=== PATIENT | female | born 1985 | race African-American/Black ===

== ENCOUNTER 2022-11-12 18:38 | Emergency (ER) | payer MEDICAID ==
[~2022-11-12] VITALS: Ht 160 cm; Wt 67.3 kg
[2022-11-12 18:45] VITALS: TEMP 98.1
[2022-11-12] MEDS ORDERED: AMOXICILLIN 8751 TAB PO (20:03)
[2022-11-12 20:22] VITALS: BP 140/86; PULSE 77
== END 2022-11-12 20:22 | disposition home or self-care (01) ==
LOC: COL.ER 18:38
DX: K02.9 Dental caries, unspecified (principal); F17.210 Nicotine dependence, cigarettes, uncomplicated; Z28.310 Unvaccinated for COVID-19; Z87.19 Personal history of other diseases of the digestive system

== ENCOUNTER 2023-08-11 07:34 | Emergency (ER) | payer MEDICAID ==
[~2023-08-11] VITALS: Ht 160 cm; Wt 67.3 kg
[~2023-08-11 07:34] MED LIST: AMOXICILLIN 8751 TAB PO
[2023-08-11 07:41] VITALS: TEMP 97.8
[2023-08-11 08:02] LABS: BASO % 0.2 % (0.0-2.0); EOS % 0.1 % (0.0-4.0); GRAN # 7.7 K/mm3 (1.4-6.5); GRAN % 75.4 % (42.2-75.2); HEMATOCRIT 37.2 % (37.0-47.0); HEMOGLOBIN 12.5 g/dl (12.5-16.0); LYMPH # 1.8 K/mm3 (1.2-3.4); LYMPH % 17.3 % (20.0-51.0); MEAN CELL VOLUME 90 fl (80.0-100.0); MEAN CORPUSCULAR HEMOGLOBIN 30 pg (27-31); MEAN CORPUSCULAR HGB CONC 34 g/dl (33.0-37.0); MONO # 0.7 K/mm3 (0.1-0.6); MONO % 6.6 % (1.7-9.3); PLATELET COUNT 293 K/mm3 (130-400); RED BLOOD COUNT 4.13 M/mm3 (4.10-5.30); REDCELL DISTRIBUTION WIDTH-CV 12.5 % (11.5-14.5)
[2023-08-11 09:55] VITALS: BP 142/70; PULSE 95
== END 2023-08-11 09:55 | disposition home or self-care (01) ==
LOC: COL.ER 07:34
PROVIDERS: Personal Emergency Response Attendant
DX: O03.9 Complete or unspecified spontaneous abortion without complication (principal); F17.210 Nicotine dependence, cigarettes, uncomplicated

== ENCOUNTER 2023-08-11 22:04 | Observation (INO) | payer MEDICAID ==
[2023-08-11 22:59] LABS: BASO % 0.2 % (0.0-2.0); EOS % 0.2 % (0.0-4.0); GRAN # 8.6 K/mm3 (1.4-6.5); GRAN % 70.4 % (42.2-75.2); LYMPH # 2.6 K/mm3 (1.2-3.4); LYMPH % 21.7 % (20.0-51.0); MEAN CORPUSCULAR HGB CONC 34 g/dl (33.0-37.0); MEAN PLATELET VOLUME 10.2 fl (7.4-10.4); MONO # 0.9 K/mm3 (0.1-0.6); MONO % 7.2 % (1.7-9.3); PLATELET COUNT 240 K/mm3 (130-400); RED BLOOD COUNT 2.99 M/mm3 (4.10-5.30); REDCELL DISTRIBUTION WIDTH-CV 12.4 % (11.5-14.5)
[2023-08-11 23:05] LABS: HEMATOCRIT 27.1 % (37.0-47.0); HEMOGLOBIN 9.1 g/dl (12.5-16.0); MEAN CORPUSCULAR HEMOGLOBIN 30 pg (27-31)
[2023-08-11 23:06] LABS: MEAN CELL VOLUME 91 fl (80.0-100.0)
[2023-08-11 23:12] LABS: ALBUMIN 3.4 gm/dL (3.5-5.0); BILIRUBIN,TOTAL 0.9 mg/dL (0.2-1.2); CALCIUM 8.4 mg/dL (8.4-10.2); CREATININE, serum 0.85 mg/dL (0.57-1.11); POTASSIUM 3.4 mmol/L (3.5-4.5); TOTAL PROTEIN 6.7 gm/dL (6.2-8.1)
[2023-08-12] VITALS (18 sets, daily range): BP systolic 97–136; BP diastolic 65–91; PULSE 88–114; TEMP 97.9–99.1
--- NOTE | 2023-08-12 01:10 | NUR ---
Pt to 222 from PACU. Alert and oriented. Post op vitals started and stable. Minimal vaginal bleeding noted. Plan of care explained. Call light within reach. Pain medication and snack given.
[2023-08-12 08:06] LABS: HEMATOCRIT 20.9 % (37.0-47.0); HEMOGLOBIN 7.1 g/dl (12.5-16.0)
--- NOTE | 2023-08-12 15:20 | NUR ---
Discharge education handout on D&C discussed with pt, pt verbalized understanding. Pt taken off unit via wheelchair at this time.
== END 2023-08-12 15:20 | disposition home or self-care (01) ==
LOC: COL.ER 22:04 → OB 08-12 00:40
PROVIDERS: Emergency Medicine; Obstetrics & Gynecology; ADMIT Obstetrics & Gynecology
DX: O03.4 Incomplete spontaneous abortion without complication (principal)
CPT/HCPCS: J1885; J2405; J2704; J3010; J7030; J7050; P9016